=== PATIENT | female | born 1960 | race Caucasian/White ===

== ENCOUNTER 2017-05-28 19:06 | Inpatient (IN) ==
[2017-05-28 21:43] LABS: Basophils % 0.2 %; Hematocrit 42.6 % (35.3-44.9); Hemoglobin 13.9 g/dL (11.5-15.4); Immature Granulocytes % 0.3 % (0-4); Lymphocytes # 3.2 K/mcL (0.6-4.6); Lymphocytes % 22.3 %; Mean Corpuscular HGB Conc 32.6 g/dL (31.6-35.5); Mean Corpuscular Hemoglobin 28.6 pg (28.0-33.3); Mean Corpuscular Volume 87.7 fL (83.0-100.0); Mean Platelet Volume 10.1 fL (9.4-12.4); Monocytes # 0.9 K/mcL (0.0-1.3); Monocytes % 6.2 %; Neutrophils # 10.3 K/mcL (1.6-8.9); Platelet Count 244 K/mcL (140-400); Red Blood Count 4.86 M/mcL (3.82-4.97); Red Cell Distribution Width 15.1 % (11.5-14.5)
[2017-05-28 21:57] LABS: BUN/Creatinine Ratio 10 (6-26); Blood Urea Nitrogen 8 mg/dL (6-20); Calcium 9.1 mg/dL (8.6-10.3); Carbon Dioxide 29 mEq/L (23-29); Chloride 102 mEq/L (98-107); Glucose 112 mg/dL (70-105); Osmolality,Calculated 279 (280-300); Potassium 4.5 mEq/L (3.5-5.1); Sodium 135 mEq/L (136-145); eGFR For African Americans > 60 (> 60); eGFR For Non-African Americans > 60 (> 60)
[2017-05-28] MEDS ORDERED: 0.9 % Sodium Chloride 1,000 ML IVC ONE (22:26)
--- NOTE | 2017-05-28 23:06 | Emergency Department Note ---
Disposition Clinical Impression: Community acquired pneumonia Qualifiers: Laterality: unspecified laterality Qualified Code(s): J18.9 - Pneumonia, unspecified organism Disposition: Admitted As Inpatient Condition: Undetermined Referrals: Conrad Sen DO [Primary Care Provider] - Forms: ED Satisfaction Letter Time of Disposition: 02:15 General Adult HPI - General Chief complaint: ED Shortness of Breath/Dyspnea Stated complaint: Shortness of breath Time Seen by Provider: 05/28/17 22:11 Source: patient Mode of arrival: ambulatory Limitations: no limitations Nursing Notes Reviewed: Yes Vital Signs Reviewed: Yes - History of Present Illness HPI Narrative: 57 year old female reports with 7 day history of coughing with yellow sputum, shortness of breath, fever, chills, body aches. Has had exposure to flu and was pretty sure she had it but after not getting better she is worried about pnuemonia. Onset (ago): day(s) (7) Location: chest Pain Severity: moderate, severe Pain Scale: 7 Improves with: nothing Worsens with: nothing Associated symptoms: Reports: cough, fever/chills, malaise, shortness of breath. Denies: confusion, chest pain, diaphoresis, headaches, loss of appetite , nausea/vomiting, rash, seizure, syncope, weakness, other - Related Data Allergies Allergy/AdvReac Type Severity Reaction Status Date / Time No Known Allergies Allergy Verified 05/28/17 19:45 All systems ED: reviewed and negative except as stated. Review of Systems: As Per HPI Constitutional: Reports: as per HPI, fever, chills Eyes: Reports: as per HPI ENT ED: Reports: as per HPI. Denies: ear pain, throat pain, dental pain, hearing loss, epistaxis, congestion Cardiovascular: Reports: as per HPI. Denies: chest pain, edema, syncope Respiratory: Reports: as per HPI, cough, dyspnea, sputum production Gastrointestinal: Reports: as per HPI. Denies: abdominal pain, nausea, vomiting Integumentary: Reports: as per HPI. Denies: rash Neurological: Reports: as per HPI. Denies: headache, weakness, numbness, paresthesias Psychiatric: Reports: as per HPI Past Medical History - Past Medical History Attestation: Yes The following information was validated with the patient. Source: patient Medical history: Reports: CVA - Social History Smoking Status: Current every day smoker Alcohol use: Reports: none Drug use: Reports: none Physical Exam - General Limitations: no limitations General appearance: alert, in no apparent distress - Head Head exam: atraumatic, normocephalic, normal inspection - Eye Eye exam: Present: PERRL, conjunctival injection. Absent: scleral icterus, periorbital swelling - ENT ENT exam: normal exam, normal oropharynx, mucous membranes moist - Neck Neck exam: Present: normal inspection, full ROM, trachea midline - Chest Chest inspection: Present: normal inspection, symmetric chest wall rise - Respiratory Respiratory exam: Present: wheezes - Expanded Respiratory Exam Location: wheezes: Left, Right, Upper, Lower, rales: Left, Right, Lower, rhonchi : Left, Right, Upper, Lower - Cardiovascular Cardiovascular exam: Present: regular rate, normal rhythm, normal heart sounds. Absent: systolic murmur - Neurological Exam Neurological exam: Present: alert, oriented X3, CN II-XII intact, normal gait - Psychiatric Psychiatric exam: Present: normal affect, normal mood - Skin Skin exam: Present: warm, dry, intact, normal color Course Course Narrative: 57-year-old female presents to emergency department with shortness of breath. Patient states that she has been sick for about a week has progressively gotten worse and now rolls productive coughing, subjective fever, chills, shortness of breath on exertion. Patient states she is healthy normally. She does have recent exposure to someone with a diagnosis of the flu and she felt that initially she does have the flu at this time has gone on she thinks it may be pneumonia. She does state that she had had pneumonia once before and felt sort of like this. Patient appears in no acute distress was sitting on the bed, however noted with a pulse ox of 86-88% on room air and she maintained a saturation above 92% patient had a be on 3 L nasal cannula. Respirations are easy and even, lungs noted with wheezing throughout, rhonchi throughout, Rales to bilateral lower lobes, heart rate regular rhythm. Chest x-ray negative for pneumonia, however she does have leukocytosis and she presents clinically as an infectious process. We will know she can. Antibiotics, breathing treatments. - Reevaluation(s) Reevaluation #1: Patient continues to rest E. After 2 breathing treatments when necessary her up and ambulated with her on room air is PO2 continued to be 86-88% patient was unable to tolerate more than a short ambulation attempt. Initially patient had been hesitant to be admitted to the hospital however is now willing to stay for IV antibiotics. Spoke with attending Dr. Celis regarding the patient's case had one-on-one face time with the patient and agree with plan of care and treatment. Hospital's paged Time: 01:05 Vital Signs Temperature 99.5 F 05/28/17 19:42 Pulse Rate 93 05/28/17 19:42 Respiratory Rate 18 05/28/17 19:42 Blood Pressure 149/77 05/28/17 19:42 O2 Sat by Pulse Oximetry 92 05/28/17 19:42 Temperature 98.9 F 05/29/17 01:00 Pulse Rate 75 05/29/17 01:00 Respiratory Rate 16 05/29/17 01:00 Blood Pressure 122/53 05/29/17 01:00 O2 Sat by Pulse Oximetry 94 05/29/17 01:00 Oxygen Delivery Oxygen Delivery Nasal Cannula Medical Decision Making - Medical Records Medical records reviewed: Yes I reviewed the patient's medical records. - Lab Data Lab results reviewed: Yes I reviewed the patient's lab results. Result diagrams: 05/28/17 21:34 05/28/17 21:34 Lab Results 05/28/17 05/28/17 05/28/17 Range/Units 21:34 21:34 21:34 WBC 14.5 H (4.3-11.1) K/mcL RBC 4.86 (3.82-4.97) M/mcL Hgb 13.9 (11.5-15.4) g/dL Hct 42.6 (35.3-44.9) % MCV 87.7 (83.0-100.0) fL MCH 28.6 (28.0-33.3) pg MCHC 32.6 (31.6-35.5) g/dL RDW 15.1 H (11.5-14.5) % Plt Count 244 (140-400) K/mcL MPV 10.1 (9.4-12.4) fL Immature Gran % 0.3 (0-4) % Seg Neutrophils % 71.0 % Lymphocytes % 22.3 % Monocytes % 6.2 % Eosinophils % 0.0 % Basophils % 0.2 % Neutrophils # 10.3 H (1.6-8.9) K/mcL Lymphocytes # 3.2 (0.6-4.6) K/mcL Monocytes # 0.9 (0.0-1.3) K/mcL Eosinophils # 0.0 (0.0-0.6) K/mcL Basophils # 0.0 (0.0-0.2) K/mcL Sodium 135 L (136-145) mEq/L Potassium 4.5 (3.5-5.1) mEq/L Chloride 102 (98-107) mEq/L Carbon Dioxide 29 (23-29) mEq/L BUN 8 (6-20) mg/dL Creatinine 0.83 (0.60-1.20) mg/dL Est GFR ( Amer) > 60 (> 60) Est GFR (Non-Af Amer) > 60 (> 60) BUN/Creatinine Ratio 10 (6-26) Glucose 112 H (70-105) mg/dL Calculated Osmolality 279 L (280-300) Lactic Acid 1.1 (0.5-2.2) mmol/L Calcium 9.1 (8.6-10.3) mg/dL Troponin I (< 0.04) ng/mL B-Natriuretic Peptide (Less than 100) pg/mL 05/28/17 05/28/17 Range/Units 21:34 21:34 WBC (4.3-11.1) K/mcL RBC (3.82-4.97) M/mcL Hgb (11.5-15.4) g/dL Hct (35.3-44.9) % MCV (83.0-100.0) fL MCH (28.0-33.3) pg MCHC (31.6-35.5) g/dL RDW (11.5-14.5) % Plt Count (140-400) K/mcL MPV (9.4-12.4) fL Immature Gran % (0-4) % Seg Neutrophils % % Lymphocytes % % Monocytes % % Eosinophils % % Basophils % % Neutrophils # (1.6-8.9) K/mcL Lymphocytes # (0.6-4.6) K/mcL Monocytes # (0.0-1.3) K/mcL Eosinophils # (0.0-0.6) K/mcL Basophils # (0.0-0.2) K/mcL Sodium (136-145) mEq/L Potassium (3.5-5.1) mEq/L Chloride (98-107) mEq/L Carbon Dioxide (23-29) mEq/L BUN (6-20) mg/dL Creatinine (0.60-1.20) mg/dL Est GFR ( Amer) (> 60) Est GFR (Non-Af Amer) (> 60) BUN/Creatinine Ratio (6-26) Glucose (70-105) mg/dL Calculated Osmolality (280-300) Lactic Acid (0.5-2.2) mmol/L Calcium (8.6-10.3) mg/dL Troponin I < 0.03 (< 0.04) ng/mL B-Natriuretic Peptide 44 (Less than 100) pg/mL - Radiology Data Radiology results reviewed: Yes I reviewed the patient's radiology results. Chest X-Ray 05/28/17 19:46 IMPRESSION: Negative portable study. D/ / Chey Pierre Cha, MD / Chey Pierre Cha, MD Interpreting Provider: Chey Pierre Cha, MD Attestation Statement - Attestation Attestation: I have personally performed a face to face evaluation on this patient. I have reviewed and agree with the care plan. History and Exam by me shows: Patiently ED with cough and shortness of breath. Cough productive of sputum. Not getting better. Patient in no distress on examination. She satting 91% on 2 L on my eval. Lungs with diffuse wheezing and rhonchi. Plan. Patient has been seen by in PE. She was given nebs. Rule out Solu-Medrol. Antibiotic. She is hypoxic on room air. Admit to medicine. 35 minutes of critical care exclusive or separately billable procedures.
[2017-05-29] MEDS ORDERED: Ipratropium/Albuterol Neb 3 ML IH ONE (00:02)
[2017-05-29] MEDS ORDERED: methylPREDNISolone 125 MG/2 ML VIAL IVP ONE (01:02)
[2017-05-29] MEDS ORDERED: Azithromycin 500 MG in D5% in Water 250 ML IVPB ONE (01:03)
[2017-05-29] MEDS ORDERED: cefTRIAXone 1,000 MG in Water for inj. (sterile) 10 ML IVP ONE (01:30)
[2017-05-29] MEDS ORDERED: Naloxone 0.4 MG/ML INJ IVP PRN (03:35)
[2017-05-29] MEDS ORDERED: *HR* HYDROcodone/Acet 5/325 mg TABLET PO PRN (03:35)
[2017-05-29] MEDS ORDERED: *HR* Promethazine 25 MG/ML VIAL IVP PRN (03:35)
[2017-05-29] MEDS ORDERED: Ondansetron 4 MG/2 ML VIAL IVP PRN (03:35)
[2017-05-29] MEDS ORDERED: Mag Hydrox/Al Hydrox/Simeth 30 ML UDC PO PRN (03:35)
--- NOTE | 2017-05-29 04:59 | Internal Med History&Physical ---
Date of Encounter: 05/29/17 Time of Encounter: 03:45 Assessment and Plan (1) Acute respiratory distress Current visit: Yes Status: Acute Admit the pt into Med Surg Reviewed her CXR by myself- No acute infiltrates.. Poor inspiratory effort noticed Will put her ROBERTO Duoneb Currently she is on 2 lit O2 and Spo2 @ 90's try to wean her off the O2 as she tolerates IV Steroids Empirical abx Levaquin as prophylaxis and for bronchitis (2) COPD with acute exacerbation Current visit: Yes Status: Acute (3) Acute purulent bronchitis Current visit: Yes Status: Acute mostly bacterial also check sputum cx, Resp viral panel on Levaquin (4) Tobacco dependence Current visit: Yes Status: Acute counseled to quit on nicotine patch Internal Medicine - H&P: HPI Chief complaint: Shortness of breath, Cough Admitted From: Emergency Dept Plans for Post Hospital Care: Home History of present illness: Ms. Dunn is a 57 year old female with known COPD, not on home O2 and chronic tobacco dependence pt who presented to ER with progressively worsening SOB and Cough with yellowish expectoration. She stated her symptoms started 7 days ago as fle like symptoms, now it got worsened. She denied any CP. Does have significant OSBORNE. Past Med Surg Social Fam HX - Past Medical History Medical history: CVA, other Psychiatric history: anxiety, depression - Past Surgical History Surgical History: ARIANA/BSO - Social History Smoking Status: Current every day smoker Alcohol use: none Drug use: none - Family History Father Hx Family Respiratory Disorders: Yes (COPD) - Additional Family History Additional family history: Father had COPD Internal Medicine - H&P: Meds Citalopram Hydrobromide [Celexa] 20 mg PO DAILY 05/29/17 [History] Gabapentin [Neurontin] 600 mg PO BID 05/29/17 [History] Warfarin [Coumadin] 5 mg PO DAILY 05/29/17 [History] clonazePAM [Klonopin] 0.5 mg PO BID 05/29/17 [History] 3 Allergy/AdvReac Type Severity Reaction Status Date / Time No Known Allergies Allergy Verified 05/28/17 19:45 All Systems PM: A 10-system review of systems was performed and is negative for pertinent findings except as documented above in the HPI. Review of systems: All the systems are reviewed everything is benign except the systems and symptoms I mentioned in the history of present illness - Constitutional Vitals: Temp Pulse Resp BP Pulse Ox 99.3 F 68 17 108/54 90 05/29/17 04:18 05/29/17 04:18 05/29/17 04:18 05/29/17 04:18 05/29/17 04:18 General appearance: Present: mild distress, A&O X 3, answers questions appropriately - Head Head exam: Present: atraumatic, normal inspection - Neck Neck exam general surgery: Present: full ROM, supple - Respiratory Respiratory exam: Present: decreased breath sounds, wheezes (diffuse , severe wheezing). Absent: rales, respiratory distress, rhonchi - Cardiovascular Cardiovascular exam: Present: RRR, +S1, +S2. Absent: tachycardia - GI/Abdominal GI/Abdominal exam: Present: normal bowel sounds, soft. Absent: distended, guarding, rigid, tenderness - Extremities Exam Extremities exam: Absent: calf tenderness, pedal edema, tenderness - Back Exam Back exam: Absent: CVA tenderness (L), CVA tenderness (R) - Neurological Exam Neurological exam: Present: alert, oriented X3, no focal deficits - Psychiatric Psychiatric exam: Present: anxious - Skin Skin exam: Absent: rash Internal Med - H&P Results - Labs CBC & Chem 7: 05/28/17 21:34 05/28/17 21:34
[2017-05-29] MEDS: Ipratropium/Albuterol Neb 3 ML IH SCH ×5 (05:07→20:08)
[2017-05-29] MEDS ORDERED: MethylPREDNISolone 40 MG/ML VIAL IVP SCH (06:00)
[2017-05-29] MEDS: *HR* Enoxaparin 40 MG/0.4 ML SYRINGE SQ SCH (06:16)
[2017-05-29 06:34] LABS: Basophils % 0.1 %; Hematocrit 41.4 % (35.3-44.9); Hemoglobin 13.2 g/dL (11.5-15.4); Immature Granulocytes % 0.4 % (0-4); Lymphocytes # 1.1 K/mcL (0.6-4.6); Lymphocytes % 7.9 %; Mean Corpuscular HGB Conc 31.9 g/dL (31.6-35.5); Mean Corpuscular Hemoglobin 28.4 pg (28.0-33.3); Mean Platelet Volume 11.1 fL (9.4-12.4); Platelet Count 240 K/mcL (140-400); Red Blood Count 4.65 M/mcL (3.82-4.97); Red Cell Distribution Width 15.4 % (11.5-14.5); Segmented Neutrophils % 87.6 %
[2017-05-29 06:43] LABS: BUN/Creatinine Ratio 15 (6-26); Blood Urea Nitrogen 11 mg/dL (6-20); Calcium 8.7 mg/dL (8.6-10.3); Carbon Dioxide 27 mEq/L (23-29); Chloride 107 mEq/L (98-107); Glucose 201 mg/dL (70-105); Monocytes # 0.6 K/mcL (0.0-1.3); Osmolality,Calculated 291 (280-300); Potassium 3.5 mEq/L (3.5-5.1); Sodium 138 mEq/L (136-145); eGFR For African Americans > 60 (> 60); eGFR For Non-African Americans > 60 (> 60)
[2017-05-29 07:40] LABS: Polychromasia 1+ (Not Present)
[2017-05-29] MEDS: Levofloxacin 750 MG/150 ML 750 MG/150 ML BAG IVPB SCH (09:22)
[2017-05-29] MEDS: Nicotine 21 MG PATCH.TD24 TD SCH (09:22)
[2017-05-29 11:11] LABS: Adenovirus Not Detected (Not Detect); Coronavirus 229E Not Detected (Not Detect); Coronavirus HKU1 Not Detected (Not Detect); Coronavirus NL63 Not Detected (Not Detect); Coronavirus OC43 Not Detected (Not Detect)
[2017-05-29 11:12] LABS: Bordetella Pertussis Not Detected (Not Detect); Chlamydophila pneumoniae Not Detected (Not Detect); Human Metapneumovirus Not Detected (Not Detect); Human Rhinovirus/Enterovirus ***DETECTED*** (Not Detect); Influenza A Subtype 2009 H1 Not Detected (Not Detect); Influenza A Untypeable Not Detected (Not Detect); Influenza B ***DETECTED*** (Not Detect); Mycoplasma pneumoniae Not Detected (Not Detect); Parainfluenza Virus 1 Not Detected (Not Detect); Parainfluenza Virus 2 Not Detected (Not Detect); Parainfluenza Virus 3 Not Detected (Not Detect); Parainfluenza Virus 4 Not Detected (Not Detect); Respiratory Syncytial Virus Not Detected (Not Detect)
[2017-05-29] MEDS: Gabapentin 300 MG CAPSULE PO SCH ×2 (11:43→20:12)
[2017-05-29] MEDS: clonazePAM 0.5 MG TABLET PO SCH ×2 (11:43→20:13)
[2017-05-29] MEDS: MethylPREDNISolone 40 MG/ML VIAL IVP SCH (16:03)
--- NOTE | 2017-05-29 16:32 | Event Note ---
Date of Encounter: 05/29/17 Time of Encounter: 09:15 57-year-old female with history of COPD, tobacco abuse, anxiety and depression, admitted with worsening cough and shortness of breath. Seen and examined at bedside. Reports feeling better, improving shortness of breath and cough. No fever, chills, vomiting or diarrhea. Reports taking influenza and pneumococcal vaccine. Chest-S1, S2 heard, regular rate and rhythm. Lungs with bilateral scattered rhonchi. Labs reviewed-improving leukocytosis. Respiratory infection panel positive for influenza B, entero-and rhinovirus. Urine for strep pneumococcus and legionella antigens negative. Acute exacerbation of COPD-secondary to acute viral bronchitis. improving. Respiratory infection panel positive for influenza B, entero-and rhinovirus. Taper down IV steroids as tolerated. Continue empiric IV antibiotics, bronchodilators and supplemental oxygen as needed. Currently requiring 2.5 L/m via nasal cannula. Tobacco abuse-continue nicotine transdermal patch.
[2017-05-29 17:31] LABS: INR 3.7; Prothrombin Time 41.4 Seconds (9.4-12.1)
[2017-05-29] MEDS ORDERED: Warfarin perPT PO PRN (18:00)
[2017-05-29] MEDS: Acetaminophen 325 MG TABLET PO PRN (20:13)
[2017-05-30] MEDS: MethylPREDNISolone 40 MG/ML VIAL IVP SCH ×3 (00:45→14:14)
[2017-05-30] MEDS: Ipratropium/Albuterol Neb 3 ML IH SCH ×7 (00:50→23:29)
[2017-05-30 05:34] LABS: Basophils % 0.1 %; Hemoglobin 11.7 g/dL (11.5-15.4); Immature Granulocytes % 0.7 % (0-4); Lymphocytes # 1.1 K/mcL (0.6-4.6); Lymphocytes % 6.8 %; Mean Corpuscular HGB Conc 32.5 g/dL (31.6-35.5); Mean Corpuscular Hemoglobin 28.7 pg (28.0-33.3); Mean Corpuscular Volume 88.2 fL (83.0-100.0); Mean Platelet Volume 10.7 fL (9.4-12.4); Monocytes # 0.6 K/mcL (0.0-1.3); Monocytes % 3.4 %; Neutrophils # 14.7 K/mcL (1.6-8.9); Platelet Count 228 K/mcL (140-400); Red Blood Count 4.08 M/mcL (3.82-4.97); Red Cell Distribution Width 15.5 % (11.5-14.5)
[2017-05-30 05:39] LABS: INR 2.7; Prothrombin Time 29.3 Seconds (9.4-12.1)
[2017-05-30] MEDS: *HR* Enoxaparin 40 MG/0.4 ML SYRINGE SQ SCH (05:51)
[2017-05-30] MEDS: Levofloxacin 750 MG/150 ML 750 MG/150 ML BAG IVPB SCH (08:43)
[2017-05-30] MEDS: Nicotine 21 MG PATCH.TD24 TD SCH (08:44)
[2017-05-30] MEDS: clonazePAM 0.5 MG TABLET PO SCH ×2 (08:44→20:21)
[2017-05-30] MEDS: Gabapentin 300 MG CAPSULE PO SCH ×2 (08:44→20:21)
[2017-05-30] MEDS ORDERED: *HR* LORazepam 0.5 MG TABLET PO ONE (12:24)
--- NOTE | 2017-05-30 15:00 | Internal Med Progress Note ---
Date of Encounter: 05/30/17 Time of Encounter: 10:30 - Assessment and plan (1) COPD with acute exacerbation Current Visit: Yes Status: Acute Assessment and plan: Improving rhonchi and respiratory distress. Noted to have leukocytosis, steroid induced. Respiratory infection panel positive for influenza B, entero- and rhinovirus. Continue to taper down IV steroids as tolerated. Continue empiric IV antibiotics, bronchodilators and supplemental oxygen. Noted to require 2 L/m via nasal cannula. Urine Legionella and strep pneumonia antigen negative. Preliminary sputum Gram stain shows few gram-positive cocci. (2) Anxiety and depression Current Visit: Yes Status: Chronic Assessment and plan: Patient is noted to be on Klonopin at home, which is being continued. She requests for further anxiolytic due to extreme anxiety and nicotine craving. We will give a dose of oral low-dose Ativan. continue to monitor. (3) CVA (cerebral vascular accident) Current Visit: Yes Status: Inactive Qualifiers: CVA mechanism: unspecified Qualified Code(s): I63.9 - Cerebral infarction, unspecified (4) Tobacco dependence Current Visit: Yes Status: Chronic Assessment and plan: Smoking cessation counseling done for 4 minutes. Patient verbalized understanding, claims that she got custody of her minor grandchildren and needs to quit smoking. Continue nicotine transdermal patch while in the hospital. (5) DVT (deep venous thrombosis) Current Visit: Yes Status: Chronic Assessment and plan: Patient has history of DVT, uncertain duration but according to the patient, she is supposed to continue lifelong anticoagulation. Continue Coumadin, pharmacy to dose. INR currently 1.9. Qualifiers: DVT location: lower extremity Affected thrombotic vein of extremity: unspecified vein of extremity Chronicity: chronic Laterality: unspecified laterality Qualified Code(s): I82.509 - Chronic embolism and thrombosis of unspecified deep veins of unspecified lower extremity - Subjective Interval history: Noted to be emotional and distraught as her mother is very sick, admitted to [facility]. Reports anxiety. Improving cough, shortness of breath, wheezing. - Constitutional Vitals: Temp Pulse Resp BP Pulse Ox 97.8 F 69 17 117/66 90 05/30/17 14:45 05/30/17 14:45 05/30/17 14:45 05/30/17 14:45 05/30/17 14:45 General appearance: Present: mild distress, A&O X 3, answers questions appropriately - Respiratory Respiratory exam: Present: CTAB (Coarse breath sounds bilaterally, improved rhonchi). Absent: accessory muscle use, rales, rhonchi, wheezes - Cardiovascular Cardiovascular exam: Present: RRR, +S1, +S2. Absent: diastolic murmur, gallop, rubs, systolic murmur - GI/Abdominal GI/Abdominal exam: Present: normal bowel sounds, soft, no peritoneal signs. Absent: distended, tenderness - Extremities Exam Extremities exam: Present: full ROM, warm, radial pulses palpable and symmetrical. Absent: calf tenderness, cyanotic, pedal edema Internal Medicine: Result - Labs CBC & Chem 7: 05/30/17 05:11 05/29/17 05:22 Labs: Short CBC 05/30/17 Range/Units 05:11 WBC 16.5 H (4.3-11.1) K/mcL Hgb 11.7 D (11.5-15.4) g/dL Hct 36.0 (35.3-44.9) % Plt Count 228 (140-400) K/mcL Neutrophils # 14.7 H (1.6-8.9) K/mcL - ABG Interpretation ABG results: PT/INR, D-dimer PT 29.3 Seconds (9.4-12.1) H 05/30/17 05:11 Consult Discharge Plan - Plan Referrals: Conrad Sen DO [Primary Care Provider] - Prescriptions: clonazePAM [Klonopin] 0.5 mg PO DAILY PRN 5 Days #5 tablet PRN Reason: Anxiety levoFLOXacin [Levaquin] 500 mg PO DAILY #3 tablet predniSONE [PredniSONE] 60 mg PO DAILY 9 Days tablet
[2017-05-30] MEDS: Acetaminophen 325 MG TABLET PO PRN (17:27)
[2017-05-30] MEDS ORDERED: *HR* Warfarin 2.5 MG TABLET PO ONE (18:00)
[2017-05-31] MEDS: Ipratropium/Albuterol Neb 3 ML IH SCH ×3 (03:34→12:02)
[2017-05-31] MEDS: *HR* Enoxaparin 40 MG/0.4 ML SYRINGE SQ SCH (05:22)
[2017-05-31] MEDS ORDERED: MethylPREDNISolone 40 MG/ML VIAL IVP SCH (06:00)
[2017-05-31 07:15] LABS: Prothrombin Time 21.4 Seconds (9.4-12.1)
[2017-05-31] MEDS: Levofloxacin 750 MG/150 ML 750 MG/150 ML BAG IVPB SCH (09:40)
[2017-05-31] MEDS: clonazePAM 0.5 MG TABLET PO SCH (09:40)
[2017-05-31] MEDS: Gabapentin 300 MG CAPSULE PO SCH (09:40)
[2017-05-31] MEDS: Nicotine 21 MG PATCH.TD24 TD SCH (09:42)
[2017-05-31 11:25] VITALS: BP 154/74
--- NOTE | 2017-05-31 11:52 | Discharge Summary ---
Date of Encounter: 05/31/17 Time of Encounter: 08:30 - Discharge Diagnosis (1) COPD with acute exacerbation Priority: Primary Status: Acute (2) Anxiety and depression Priority: Secondary Status: Chronic (3) CVA (cerebral vascular accident) Priority: Secondary Status: Inactive Qualifiers: CVA mechanism: unspecified Qualified Code(s): I63.9 - Cerebral infarction, unspecified (4) Tobacco dependence Priority: Secondary Status: Chronic (5) DVT (deep venous thrombosis) Priority: Secondary Status: Chronic Qualifiers: DVT location: lower extremity Affected thrombotic vein of extremity: unspecified vein of extremity Chronicity: chronic Laterality: unspecified laterality Qualified Code(s): I82.509 - Chronic embolism and thrombosis of unspecified deep veins of unspecified lower extremity - Discharge Medications Prescriptions: clonazePAM [Klonopin] 0.5 mg PO DAILY PRN 5 Days #5 tablet PRN Reason: Anxiety GuaiFENesin ER [Mucinex] 600 mg PO BID PRN #20 tbbp.12hr PRN Reason: Congestion levoFLOXacin [Levaquin] 500 mg PO DAILY #3 tablet predniSONE [PredniSONE] 60 mg PO DAILY 9 Days tablet Home Medications: Citalopram Hydrobromide [Celexa] 20 mg PO DAILY 05/29/17 [History] Gabapentin [Neurontin] 600 mg PO BID 05/29/17 [History] Warfarin [Coumadin] 5 mg PO DAILY 05/29/17 [History] clonazePAM [Klonopin] 0.5 mg PO BID 05/29/17 [History] clonazePAM [Klonopin] 0.5 mg PO DAILY PRN 5 Days #5 tablet 05/30/17 [Rx] levoFLOXacin [Levaquin] 500 mg PO DAILY #3 tablet 05/30/17 [Rx] predniSONE [PredniSONE] 60 mg PO DAILY 9 Days tablet 05/30/17 [Rx] GuaiFENesin ER [Mucinex] 600 mg PO BID PRN #20 tbbp.12hr 05/31/17 [Rx] Allergies/Adverse Reactions: 3 Allergy/AdvReac Type Severity Reaction Status Date / Time No Known Allergies Allergy Verified 05/28/17 19:45 Date of admission: 05/29/17 03:35 Primary care physician: oCnrad Sen Discharging clinician: Mariah Pizarro date of discharge: 05/31/17 - Patient Status Disposition: Home, Self-Care Condition: Fair Functional capacity at discharge: independent ambulation Overall status at discharge: patient is progressing back to baseline - Discharge Instructions Instructions: Clonazepam (By mouth), Prednisone (By mouth), Guaifenesin (By mouth), Levofloxacin (By mouth), Chronic Obstructive Pulmonary Disease (DC), Pneumonia (DC) Follow Up With: Conrad Sen DO [Primary Care Provider] - 06/07/17 1:30 pm (FOLLOW UP WITH BE WITH RESIDENT OF ) Forms: ED Satisfaction Letter Additional Instructions: F/up with PCP in 1-2 weeks - Diet and Activity Activity: resume usual activities as tolerated Diet: low fat, low cholesterol, low salt diet Hospital course: Ms. Dunn is a 57 year old female with the above medical problems including tobacco abuse, was admitted with worsening cough and shortness of breath. Patient was noted to be in acute exacerbation of COPD, started on IV steroids, empiric IV antibiotics, bronchodilators and supplemental oxygen. She also received when necessary antitussives and anxiolytics. Patient gradually improved on this regimen. She still continues to require at least 2 L/m supplemental oxygen via nasal cannula, continuously and would benefit from portable home oxygen. She is noted to be mobile at home. Chest x-ray showed no evidence of acute infiltrates. Respiratory infection panel was positive for influenza B, entero-/rhinovirus. Patient significantly improved on this regimen. She continues to have some scattered rhonchi but respiratory status has improved and patient feels better today. She requested for a prescription for PRN Klonopin, until she follows with her PCP as she is running out. Prescription was initially provided, however pharmacy alerted me that patient filled a prescription for Klonopin on May 21, which is 10 days ago and is supposed to have 5 more days worth of pills. My prescription is being discarded at this time due to duplicity. Patient is otherwise medically stable for discharge with outpatient follow-up. Time spent discussing smoking cessation with patient: 3 to 10 minutes (4min) - Time Spent with Patient Total time spent providing and/or coordinating discharge services: Greater than 30 minutes (45 min) - Constitutional Vitals: Temp Pulse Resp BP Pulse Ox 97.6 F 71 16 154/74 93 05/31/17 11:24 05/31/17 11:24 05/31/17 11:24 05/31/17 11:24 05/31/17 11:24 General appearance: Present: A&O X 3, answers questions appropriately - Respiratory Respiratory exam: Present: CTAB (coarse breath sounds B/L), rhonchi. Absent: accessory muscle use, rales, wheezes
--- NOTE | 2017-05-31 16:19 | Electrocardiograph Report ---
[place] [id number] Test Date: 2017-05-28 Pat Name: Isabelle Dunn Department: 104 Room: 2A Gender: F [employer]: : 1960 Requested By: Rosario See Order Number: [id number] Reading MD: Toribio Guillaume DO Measurements Intervals [place] Rate: 84 P: 70 NV: 128 QRS: -1 QRSD: 77 T: 58 QT: 364 QTc: 405 Interpretive Statements SINUS RHYTHM WITH SINUS ARRHYTHMIA POSSIBLE LEFT ATRIAL ENLARGEMENT INDETERMINATE AXIS Electronically Signed On 05-31-2017 16:17:24 EST by Toribio Guillaume DO
[2017-05-31] MEDS ORDERED: *HR* Warfarin 5 MG TABLET PO ONE (18:00)
== END 2017-05-31 16:34 | disposition home or self-care (01) | DRG 191 ==
LOC: 2ANU 19:06 → EMEROO 19:06 → 2ANU 05-29 02:35 → SUATTDRO 05-29 03:35
PROVIDERS: ADMIT Family Medicine; ATTEND Internal Medicine